=== PATIENT | female | born 1975 | race Caucasian/White ===

== ENCOUNTER 2024-01-22 19:20 | Emergency (ER) | payer OTHER ==
[~2024-01-22] VITALS: Ht 165.1 cm; Wt 88.9 kg
[~2024-01-22 19:20] MED LIST: MULT-514 PO
[2024-01-22 19:25] VITALS: BP 125/75; PULSE 75; RESP 16; TEMP 98.6; O2SAT 98
[2024-01-22] MEDS ORDERED: AMOX1TAB8 PO (20:44)
[2024-01-22] MEDS ORDERED: ACET-8905 PO (20:44)
[2024-01-22 21:02] VITALS: BP 125/75; PULSE 75; RESP 16; TEMP 98.6; O2SAT 98
== END 2024-01-22 21:02 | disposition home or self-care (01) ==
LOC: MED 19:20
DX: K08.89 Other specified disorders of teeth and supporting structures (principal); Z98.890 Other specified postprocedural states; Z79.899 Other long term (current) drug therapy
CPT/HCPCS: 64400; 99284

== ENCOUNTER 2024-02-29 04:42 | Emergency (ER) | payer OTHER ==
[~2024-02-29] VITALS: Ht 167.6 cm; Wt 90.4 kg
[~2024-02-29 04:42] MED LIST changes: +ACET-8905 PO; +AMOX1TAB8 PO
[2024-02-29 04:49] VITALS: BP 98/44; PULSE 60; RESP 18; TEMP 97.1; O2SAT 100
[2024-02-29 04:51] VITALS: BP 98/44; PULSE 60; RESP 18; O2SAT 100
[2024-02-29 05:40] LABS: FLU A ANTIGEN negative (NEGATIVE); FLU B ANTIGEN negative (NEGATIVE)
[2024-02-29] MEDS: NACL 0.9% 1,000 ML IV ONE (05:49)
[2024-02-29 06:10] LABS: CALCIUM 8.2 mg/dL (8.5-10.1); CARBON DIOXIDE 27.3 mmol/L (21-32); CREATININE 0.6 mg/dL (0.6-1.3); POTASSIUM 3.3 mmol/L (3.5-5.1)
[2024-02-29] MEDS: ACETAMINOPHEN EXTRA STRENGTH 500 MG TAB PO ONE (06:20)
[2024-02-29] MEDS: KETOROLAC 30 MG/ML VIAL IVP ONE (06:20)
[2024-02-29 06:39] LABS: BASOPHILS % (AUTO) 0.5 % (0.0-2.0); EOSINOPHILS # (AUTO) 0.3 K/uL (0-0.4); EOSINOPHILS % (AUTO) 3.6 % (0.0-4.0); HEMATOCRIT 34.6 % (36-48); HEMOGLOBIN 11.4 g/dL (12.0-16.0); LYMPHOCYTES # (AUTO) 1.8 K/uL (2.5-16.5); LYMPHOCYTES % (AUTO) 24.6 % (20.5-51.1); MEAN CORPUSCULAR HEMOGLOBIN 29 pg (27-31); MEAN CORPUSCULAR HGB CONC 33 g/dL (33-37); MEAN CORPUSCULAR VOLUME 88.5 fL (80-94); MONOCYTES # (AUTO) 0.5 K/uL (0.8-1.0); MONOCYTES % (AUTO) 6.5 % (1.7-9.3); NEUTROPHILS # (AUTO) 4.6 K/uL (1.8-7.7); NEUTROPHILS % (AUTO) 64.8 % (42.2-75.2); PLATELET COUNT (AUTO) 225 K/uL (140-450); RED BLOOD CELL COUNT(AUTO) 3.91 MIL/uL (4.20-5.40); RED CELL DISTRIBUTION WIDTH 13.3 % (11.6-13.7); WHITE BLOOD COUNT (AUTO) 7.2 K/uL (4.8-10.8)
== END 2024-02-29 07:07 | disposition home or self-care (01) ==
LOC: MED 04:42
DX: J06.9 Acute upper respiratory infection, unspecified (principal); Z20.822 Contact with and (suspected) exposure to COVID-19; R07.9 Chest pain, unspecified; Z79.899 Other long term (current) drug therapy
CPT/HCPCS: 36415; 71045; 80048; 81025; 84484; 85025; 87426; 87804; 93005; 96361; 96374; 99285; J1885; J7030; Q0092